=== PATIENT | female | born 1995 | race Caucasian/White ===

== ENCOUNTER 2018-05-22 12:12 | Inpatient (IN) | payer OTHER ==
[2018-05-22] VITALS (30 sets, daily range): BP systolic 105–140; BP diastolic 56–83; PULSE 70–103; TEMP 97.3–98.6
[~2018-05-22] VITALS: Ht 160 cm; Wt 96.8 kg
[~2018-05-22 12:12] MED LIST: PRENATAL1 TA7 PO
--- NOTE | 2018-05-22 12:30 | NUR ---
Pt arrives on unit from [facility]. Elida called over from office with pt increase of mucus since 05/18/18 and increase of PH. Pt changed into clean gown. EFM and toco applied. VS obtained. Amniotest negative. No fluid noted on gloves. Dr. Carrero notified of pt status. Orders for amniosure. Amniosure obtained. Admission assessment completed. Pt updated on plan of care. Call light within reach. No questions or concerns at this time
--- NOTE | 2018-05-22 13:00 | NUR ---
Amniosure positive. Dr. Carrero notified of lab results. Orders for admission and 2g Amp/100g Gent for PROM since 05/20/18 at 1900. Pt updated on POC. Consents signed. Care of pt assumed to Yennifer Montelongo RN.
--- NOTE | 2018-05-22 13:30 | NUR ---
IV started in left hand, labs collected and sent to lab. LR infusing without difficulty. Ampicillin started IV per order.
--- NOTE | 2018-05-22 14:15 | NUR ---
Gentamicin IV infusing per order. Patient resting in bed. Patient states she is starting to feeling her contractions in her lower abdomen.
[2018-05-22 14:20] LABS: BASO % 0.1 % (0.0-2.0); EOS # 0.1 (0.0-0.7); GRAN # 5.7 (1.4-6.5); GRAN % 69.4 % (42.2-75.2); LYMPH # 1.9 (1.2-3.4); LYMPH % 23.6 % (20.0-51.0); MEAN CELL VOLUME 82 fl (80.0-100.0); MEAN CORPUSCULAR HEMOGLOBIN 28 pg (27.0-31.0); MEAN CORPUSCULAR HGB CONC 34 g/dl (33.0-37.0); MEAN PLATELET VOLUME 10.2 fl (7.4-10.4); MONO # 0.4 (0.1-0.6); MONO % 5.4 % (1.7-9.3); PLATELET COUNT 221 K/mm3 (130-400); RED BLOOD COUNT 4.35 M/mm3 (4.10-5.30); REDCELL DISTRIBUTION WIDTH-CV 12.8 % (11.5-14.5)
[2018-05-22 14:21] LABS: HEMATOCRIT 35.5 % (37.0-47.0)
--- NOTE | 2018-05-22 15:45 | NUR ---
1545: Patient continues to leak clear fluid. SVE /-2. Pitocin started at 2mu/min per Dr. Carrero order to start 1 hour after antibiotics infused. Patient repositioned left lateral.
--- NOTE | 2018-05-22 17:10 | NUR ---
Patient calls out requesting epidural at this time. Patient breathing controlled through contractions.
--- NOTE | 2018-05-22 17:20 | NUR ---
1720: Patient repositioned and sitting up at side of bed for epidural placement. Chris Boswell CRNA at bedside and epidural explained. 1732: Epidural catheter placed. 1733: Test dose given. No reaction to test dose. Patient tolerates procedure well. Epidural taped and secured to patients back. Patient repositioned wedged left at 1738. See anesthesia records.
[2018-05-22] MEDS ORDERED: MOTRIN 800800 MG/TAB PO (18:09)
--- NOTE | 2018-05-22 18:40 | NUR ---
Dr Carrero into room, SVE as noted.
--- NOTE | 2018-05-22 19:04 | NUR ---
zofran 4mg IVP for nausea. 8 FHT's to [address] Carrero into room, SVE complete. Pt set up for delivery. Pushing instructions given. [address] Carrero.
--- NOTE | 2018-05-22 19:22 | NUR ---
Placenta delivers spont and intact with 3 vessel cord. Pitocin gtt to blous rate.
--- NOTE | 2018-05-22 22:30 | NUR ---
2230 IV TO INT. EPID CATH REMOVED. UP TO BR WITH ASSIST AND VOIDED 350CC. PERICARE DONE. AMB TO 207 AND [facility].
[2018-05-23 01:20] VITALS: BP 141/86; PULSE 85; TEMP 97.5
[2018-05-23 04:00] VITALS: BP 131/74; PULSE 61; TEMP 97.6
[2018-05-23 08:45] VITALS: BP 116/73; PULSE 69; TEMP 97.8
--- NOTE | 2018-05-23 09:30 | NUR ---
Initial visit; Parents thanked Masonry Contractor Administrator for offering congratulations and God's blessings to their family for the of their daughter. Masonry Contractor Administrator thanked family for choosing [facility].
--- NOTE | 2018-05-23 09:35 | NUR ---
[place] visit; Parents thanked Catalytic Converter Operator for offering congratulations and God's blessings for the of their son. Catalytic Converter Operator thanked family for choosing [facility].
[2018-05-23 12:06] VITALS: BP 121/71; PULSE 76; TEMP 97.5
[2018-05-23 16:45] VITALS: BP 127/68; PULSE 96; TEMP 97.7
[2018-05-23 21:00] VITALS: BP 123/68; PULSE 79; TEMP 98.6
[2018-05-24 08:24] VITALS: BP 128/76; PULSE 89; TEMP 97.9
== END 2018-05-24 15:15 | disposition home or self-care (01) | DRG 807 ==
LOC: LDRO 12:12 → OB 13:10 → LDR 13:10 → OB 22:30
PROVIDERS: ADMIT Obstetrics & Gynecology
PROC: 10E0XZZ Delivery of Products of Conception, External Approach (ICD-10-PCS; principal; 2018-05-22)
DX: O42.12 Full-term premature rupture of membranes, onset of labor more than 24 hours following rupture (principal); Z37.0 Single live birth; Z3A.38 38 weeks gestation of pregnancy; O76 Abnormality in fetal heart rate and rhythm complicating labor and delivery; O69.81X0 Labor and delivery complicated by cord around neck, without compression, not applicable or unspecified; O99.824 Streptococcus B carrier state complicating childbirth; O99.214 Obesity complicating childbirth; O99.344 Other mental disorders complicating childbirth; F41.8 Other specified anxiety disorders
CPT/HCPCS: J0290; J1580; J2405; J2590; J7120

== ENCOUNTER 2020-05-10 10:57 | Outpatient (CLI) | payer OTHER ==
[~2020-05-10] VITALS: Ht 160 cm; Wt 104.5 kg
[2020-05-10] VITALS (9 sets, daily range): BP systolic 131–144; BP diastolic 63–811; PULSE 94–103; TEMP 98
[~2020-05-10 10:57] MED LIST changes: +MOTRIN 800800 MG/TAB PO
--- NOTE | 2020-05-10 11:00 | NUR ---
Patient arrives ambulatory after speaking with Dr. Barba on telephone this morning. Patient states she has been having a headache "for the past week, seeing spots on and off, and I have shortness of breath on and off". Patient does not appear short of breath during assessment, lungs CTAB, and patient reports "it's hard to breathe when I'm laying down, but when I'm sitting right now it's ok". Patient reports intermittent pain in her RUQ area, states "it might be my ligament because I notice it more when I'm sitting towards that side and it gets better when I reposition". Patient states she took Tylenol at 0430 this morning. Was seen in the office yesterday and started at 24 hour urine this morning at 0730 with plan to follow up tomorrow in office. Patient denies contractions, ROM, or vaginal bleeding. Reports normal movement. Patient changes into gown, EFM explained and placed. VS obtained. Assessment completed. See physician notification. Patient updated on plan of care for labs and continued monitoring.
[2020-05-10] MEDS ORDERED: TYLENOL 325MG325 MG PO (11:22)
[2020-05-10] MEDS ORDERED: PRENATAL (11:23)
[2020-05-10 12:10] LABS: BASO % 0.3 % (0.0-2.0); EOS # 0.2 (0.0-0.7); EOS % 2.6 % (0-4.0); GRAN # 6.2 (1.4-6.5); GRAN % 67.4 % (42.2-75.2); HEMATOCRIT 34.4 % (37.0-47.0); HEMOGLOBIN 11.6 g/dl (12.5-16.0); LYMPH # 2.2 (1.2-3.4); LYMPH % 23.3 % (20.0-51.0); MEAN CELL VOLUME 84 fl (80.0-100.0); MEAN CORPUSCULAR HEMOGLOBIN 28 pg (27.0-31.0); MEAN CORPUSCULAR HGB CONC 34 g/dl (33.0-37.0); MEAN PLATELET VOLUME 9.7 fl (7.4-10.4); MONO # 0.5 (0.1-0.6); MONO % 5.4 % (1.7-9.3); PLATELET COUNT 216 K/mm3 (130-400); RED BLOOD COUNT 4.11 M/mm3 (4.10-5.30)
[2020-05-10 12:13] LABS: ALBUMIN 3.6 gm/dL (3.5-5.0); BILIRUBIN,TOTAL 0.5 mg/dL (0.0-1.0); CALCIUM 8.8 mg/dL (8.4-10.2); CREATININE, serum 0.54 (0.52-1.25); TOTAL PROTEIN 6.9 gm/dL (6.4-8.2)
--- NOTE | 2020-05-10 12:52 | NUR ---
Reviewed labor precautions and kick counts, reviewed PIH symptoms and reviewed reasons to return to hospital. Patient has appointment tomorrow in office at 0900, encouraged to keep. Patient agrees and dnies questions.
== END 2020-05-10 12:50 | disposition home or self-care (01) ==
LOC: LDRO 10:57
PROVIDERS: Obstetrics & Gynecology
DX: O99.891 Other specified diseases and conditions complicating pregnancy (principal); R10.11 Right upper quadrant pain; R51.9 Headache, unspecified; R06.02 Shortness of breath; Z3A.36 36 weeks gestation of pregnancy

== ENCOUNTER 2020-05-17 06:04 | Inpatient (IN) | payer OTHER ==
[~2020-05-17] VITALS: Ht 160 cm; Wt 105.0 kg
[2020-05-17] VITALS (23 sets, daily range): BP systolic 120–143; BP diastolic 62–83; PULSE 72–113; TEMP 97.8–98.4
[~2020-05-17 06:04] MED LIST changes: +PRENATAL; +TYLENOL 325MG325 MG PO
--- NOTE | 2020-05-17 07:09 | NUR ---
PT HERE BECAUSE SHE THINKS HER WATER BROKE AT 0500. FELT A GUSH OF FLUID AND HAS HAD CONTRACTIONS AND NAUSEA SINCE. FHT'S WITH MODERATE VARIABILITY AND ACCELS. AMNIOTRACE POSITIVE. SVE -2. PHONED DR CORREIA AT 0633 WITH UPDATE AND ORDERS RECEIVED TO ADMIT PT. PLAN OF CARE REVIEWED WITH PT. IV STARTED IN LEFT HAND BY ADONIS WYNN, WITH LR INFUSING WITHOUT DIFFICULTY.
[2020-05-17 08:25] LABS: BASO % 0.3 % (0.0-2.0); EOS # 0.3 (0.0-0.7); EOS % 2.7 % (0-4.0); GRAN # 6.2 (1.4-6.5); GRAN % 66.4 % (42.2-75.2); HEMOGLOBIN 11.6 g/dl (12.5-16.0); LYMPH # 2.2 (1.2-3.4); LYMPH % 23.7 % (20.0-51.0); MEAN CELL VOLUME 82 fl (80.0-100.0); MEAN CORPUSCULAR HEMOGLOBIN 27 pg (27.0-31.0); MEAN CORPUSCULAR HGB CONC 34 g/dl (33.0-37.0); MEAN PLATELET VOLUME 10.2 fl (7.4-10.4); MONO # 0.6 (0.1-0.6); MONO % 6.4 % (1.7-9.3); PLATELET COUNT 233 K/mm3 (130-400); RED BLOOD COUNT 4.24 M/mm3 (4.10-5.30); REDCELL DISTRIBUTION WIDTH-CV 12.9 % (11.5-14.5)
--- NOTE | 2020-05-17 08:30 | NUR ---
FHT'S WITH MARKED VARIABILITY. FLUID BOLUS GIVEN OF 500CC.
[2020-05-17 08:33] LABS: HEMATOCRIT 34.6 % (37.0-47.0)
--- NOTE | 2020-05-17 09:00 | NUR ---
DR BLAKE IN AT 0852 TO DISCUSS PLAN OF CARE WITH PT. SVE WITH LITTLE TO NO CHANGE. DISCUSSED AUGMENTATION WITH PITOCIN AND PT AGREES. PITOCIN STARTED AT 2MU AT 0858.
--- NOTE | 2020-05-17 09:16 | NUR ---
UNABLE TO MONITOR CONTRACTIONS EFFECTIVELY. REPOSITIONED TOCO.
--- NOTE | 2020-05-17 10:30 | NUR ---
PT WANTING EPIDURAL. RIC ALVES, CALLED AT 1029 TO COME FOR PLACEMENT. FLUID BOLUS STARTED.
--- NOTE | 2020-05-17 10:45 | NUR ---
Chris SCOTT CRNA, IN AT 1040 FOR EPIDURAL PLACEMENT. PT POSITIONED SITTING UP IN BED.
--- NOTE | 2020-05-17 11:15 | NUR ---
PT NOT FEELING RELIEF FROM EPIDURAL. STATES SHE IS FEELING PRESSURE.SVE 8-9/100/[address]. DR BLAKE IS IN THE HOSPITAL AND NOTIFIED OF SVE. ENCOURAGED PT TO PUSH EPIDURAL BOLUS BUTTON BUT DISCUSSED IT MAY NOT WORK SINCE SHE IS MAKING CHANGE FAST AND SHE SAYS THIS HAPPENED WITH HER LAST DELIVERY WELL.
--- NOTE | 2020-05-17 11:32 | NUR ---
PT FEELING INCREASING RECTAL PRESSURE. SVE AT 1120 WITH COMPLETE DILATION/+[address] BLAKE WHO WAS AT NURSES STATION. DR GARCIA AT 1125. PT PREPPED AND POSITIONED FOR DELIVERY. PUSHING STARTED AT 1129 WITH DELIVERY OF MALE AT 1132. PITOCIN STOPPED IMMEDIATELY AFTER DELIVERY OF INFANT.
--- NOTE | 2020-05-17 11:35 | NUR ---
SPONTANEOUS DELIVERY OF PLACENTA AT 1135. PITOCIN STARTED AT 333ML/HR AFTER DELIVERY OF PLACENTA. FUNDUS FIRM WITH MINIMAL BLEEDING OBSERVED. INTACT PERINEUM.
--- NOTE | 2020-05-17 11:50 | NUR ---
DR BLAKE PERFORMS STRAIGHT CATHETERIZATION AFTER DELIVERY OF PLACENTA. PERICARE PERFORMED. NEW PERIPAD IN PLACE. BED PUT BACK TOGETHER. PT HOLDING BABY. FUNDUS FIRM WITH MINIMAL BLEEDING. LEFT LEG VERY NUMB.
[2020-05-17] MEDS ORDERED: MOTRIN 800800 MG/TAB PO (20:47)
[2020-05-18 02:50] VITALS: BP 118/83; PULSE 75; TEMP 97.9
--- NOTE | 2020-05-18 06:34 | NUR ---
PATIENT SLEEPING. REPORT RECEIVED FOM OFF GOING RN, MARCIE Bravo. CARE TAKEN OVER BY THIS RN.
[2020-05-18 07:13] VITALS: BP 126/76; PULSE 90; TEMP 97.8
--- NOTE | 2020-05-18 09:38 | NUR ---
Initial visit; Parents thanked Adjunct Writing Instructor for offering congratulations and God's blessings for the of their son. Adjunct Writing Instructor thanked family for choosing [facility].
[2020-05-18] MEDS ORDERED: PERCOCET 325 MG1 TA2 PO (10:12)
== END 2020-05-18 15:30 | disposition home or self-care (01) | DRG 806 ==
LOC: LDRO 06:04 → OB 07:11 → LDR 07:11 → OB 14:15
PROVIDERS: ADMIT Obstetrics & Gynecology
PROC: 10E0XZZ Delivery of Products of Conception, External Approach (ICD-10-PCS; principal; 2020-05-17)
DX: O99.214 Obesity complicating childbirth (principal); O98.52 Other viral diseases complicating childbirth; Z37.0 Single live birth; O99.62 Diseases of the digestive system complicating childbirth; O99.344 Other mental disorders complicating childbirth; B00.9 Herpesviral infection, unspecified; E66.9 Obesity, unspecified; F32.9 Major depressive disorder, single episode, unspecified; F41.9 Anxiety disorder, unspecified; Z3A.37 37 weeks gestation of pregnancy; K21.9 Gastro-esophageal reflux disease without esophagitis
CPT/HCPCS: J2590; J7120